=== PATIENT | female | born 1975 | race Caucasian/White ===

== ENCOUNTER 2017-09-16 13:16 | Day surgery (SDC) | payer BC, OTHER ==
[~2017-09-16] VITALS: Ht 162.6 cm; Wt 121.3 kg
[~2017-09-16 13:16] MED LIST: Acidophilus La100 GM; Advair Hfa 230-12 GM; Aviane1 EACH; DEXL60CA3; ESCI20; Flonase 0.05% N16 GM; HYDROCODON-ACE1 EAC3; MONT10T; NAPR550; TRAM50 PO
== END 2017-09-16 15:24 | disposition home or self-care (01) ==
LOC: ORSCSDS 13:16
PROVIDERS: Internal Medicine Gastroenterology
PROC: 0DB68ZX Excision of Stomach, Via Natural or Artificial Opening Endoscopic, Diagnostic (ICD-10-PCS; principal; 2017-09-16 15:00)
PROC: 0DB98ZX Excision of Duodenum, Via Natural or Artificial Opening Endoscopic, Diagnostic (ICD-10-PCS; principal; 2017-09-16 15:00)
DX: K21.9 Gastro-esophageal reflux disease without esophagitis (principal); R13.10 Dysphagia, unspecified; K31.7 Polyp of stomach and duodenum; R19.7 Diarrhea, unspecified; K44.9 Diaphragmatic hernia without obstruction or gangrene; K29.70 Gastritis, unspecified, without bleeding; E11.9 Type 2 diabetes mellitus without complications; M79.7 Fibromyalgia; E66.01 Morbid (severe) obesity due to excess calories; Z68.42 Body mass index [BMI] 45.0-49.9, adult; F41.9 Anxiety disorder, unspecified; Z79.899 Other long term (current) drug therapy
CPT/HCPCS: 88305; 88342; J2250; J7120

== ENCOUNTER 2017-10-27 08:21 | Day surgery (SDC) | payer BC, OTHER | END 2017-10-27 23:02 | disposition home or self-care (01) | LOC: MOI MAM 08:21 | PROC: 0HBU3ZX Excision of Left Breast, Percutaneous Approach, Diagnostic (ICD-10-PCS; principal; 2017-10-27) | DX: N62 Hypertrophy of breast (principal) | CPT/HCPCS: 19083; 77065; 88305 ==

== ENCOUNTER → 2018-10-19 | Outpatient (CLI) | payer OTHER ==
[2018-10-21 15:07] LABS: HPV 16 Negative (Negative); HPV 18 Negative (Negative); HPV OTHER HR TYPES Negative (Negative)
== END | disposition home or self-care (01) ==
LOC: LAB SHORT 12:37 → LAB 12:37
PROVIDERS: Nurse Practitioner Women's Health
DX: Z12.4 Encounter for screening for malignant neoplasm of cervix (principal); L29.2 Pruritus vulvae
CPT/HCPCS: 87070; 87205; 87624; G0123

== ENCOUNTER → 2019-09-04 | Outpatient (CLI) | payer OTHER | END | disposition home or self-care (01) | LOC: LAB SHORT 10:00 → LAB 10:00 | DX: N39.0 Urinary tract infection, site not specified (principal); R35.0 Frequency of micturition | CPT/HCPCS: 87077; 87086; 87186 ==

== ENCOUNTER 2021-10-18 10:42 | Day surgery (SDC) | payer OTHER ==
[2021-10-16 15:15] LABS: BASOPHILS ABSOLUTE AUTO 0.01 K/mm3 (0.00-0.23); BASOPHILS PERCENT AUTO 0 % (0-2); EOSINOPHILS ABSOLUTE AUTO 0.14 K/mm3 (0.00-0.68); EOSINOPHILS PERCENT AUTO 2 % (0-6); Hematocrit 40.7 % (33.0-51.0); Hemoglobin 13.1 g/dL (11.5-16.0); IMMATURE GRAN ABSOLUTE AUTO 0.02 K/mm3 (0.00-0.10); IMMATURE GRAN PERCENT AUTO 0 % (0-1); LYMPHOCYTES ABSOLUTE AUTO 1.11 K/mm3 (0.84-5.20); LYMPHOCYTES PERCENT AUTO 19 % (21-46); MONOCYTES ABSOLUTE AUTO 0.52 K/mm3 (0.16-1.47); MONOCYTES PERCENT AUTO 9 % (4-13); Mean Corpuscular HGB 29.4 pg (26.0-34.0); Mean Corpuscular HGB Conc 32.2 g/dL (31.5-36.5); Mean Corpuscular Volume 91 fL (80-100); Mean Platelet Volume 10.8 fL (9.1-12.4); NEUTROPHILS ABSOLUTE AUTO 4.17 K/mm3 (1.96-9.15); NEUTROPHILS PERCENT AUTO 70 % (41-73); Platelet Count 287 K/mm3 (150-400); RDW Coefficient Variation 13.1 % (11.7-14.2); RDW Standard Deviation 43.5 fL (35.1-46.3); Red Blood Cell Count 4.46 M/mm3 (3.80-5.20); White Blood Cell Count 5.97 K/mm3 (4.00-11.30)
[2021-10-16 23:46] LABS: Anion Gap 4 mmol/L (6-16); Beta HCG, Quantitative, Serum <1 mIU/mL (0-3); Blood Urea Nitrogen 13 mg/dL (8-24); Bun/Creatinine Ratio 17.8 (12.0-20.0); CO2, Blood 30 mmol/L (21-32); Calcium, Blood 8.5 mg/dL (8.5-10.1); Chloride, Blood 107 mmol/L (98-108); Creatinine, Blood 0.73 mg/dL (0.40-1.00); Glomerular Filtration Rate >60 (60-); Glucose, Blood 82 mg/dL (70-99); Potassium, Blood 4.1 mmol/L (3.5-5.5); Sodium, Blood 141 mmol/L (136-145)
[~2021-10-18] VITALS: Ht 162.6 cm; Wt 127.1 kg
[2021-10-18] MEDS ORDERED: AMLODIPINE-OLM1 EACH PO (11:01)
[2021-10-18] MEDS ORDERED: LORA10ER PO (11:01)
[2021-10-18] MEDS ORDERED: ESOMEPRAZOLE MA40 MG PO (11:01)
--- NOTE | 2021-10-18 18:21 | NUR ---
PT. ARRIVE TO FLOOR VIA GURNEY FROM PACU AT 1800. PATIENT NAUSEATED WITH MOVEMENT THEN DENIES NAUSEA. TOOK SIP WATER. IVF INFUSING, HER DRAINING CLEAR YELLOW URINE. PATIENT DOZING. ELVIRA CARE DONE, CLEAN ELVIRA PAD ADDED. O2 ON AT 3L PER NC. VSS. CALL LIGHT IN REACH.
--- NOTE | 2021-10-18 18:48 | NUR ---
pt. c/o "bad cramping "in abdomen. VSS and sats 97% on 3L per nc. Morphine 5 mg iv given and pt. verbalize relief. Taking sips water. Denies nausea at this time.
--- NOTE | 2021-10-19 02:13 | NUR ---
villa out; toleratd well.
[2021-10-19 04:39] LABS: BASOPHILS ABSOLUTE AUTO 0.02 K/mm3 (0.00-0.23); BASOPHILS PERCENT AUTO 0 % (0-2); EOSINOPHILS PERCENT AUTO 0 % (0-6); Hematocrit 37.4 % (33.0-51.0); Hemoglobin 12.5 g/dL (11.5-16.0); IMMATURE GRAN ABSOLUTE AUTO 0.05 K/mm3 (0.00-0.10); IMMATURE GRAN PERCENT AUTO 0 % (0-1); LYMPHOCYTES ABSOLUTE AUTO 0.35 K/mm3 (0.84-5.20); LYMPHOCYTES PERCENT AUTO 3 % (21-46); MONOCYTES ABSOLUTE AUTO 0.22 K/mm3 (0.16-1.47); MONOCYTES PERCENT AUTO 2 % (4-13); Mean Corpuscular HGB 29.2 pg (26.0-34.0); Mean Corpuscular HGB Conc 33.4 g/dL (31.5-36.5); Mean Corpuscular Volume 87 fL (80-100); Mean Platelet Volume 10.2 fL (9.1-12.4); NEUTROPHILS ABSOLUTE AUTO 13.06 K/mm3 (1.96-9.15); NEUTROPHILS PERCENT AUTO 95 % (41-73); Platelet Count 242 K/mm3 (150-400); RDW Coefficient Variation 12.6 % (11.7-14.2); RDW Standard Deviation 40.6 fL (35.1-46.3); Red Blood Cell Count 4.28 M/mm3 (3.80-5.20)
--- NOTE | 2021-10-19 04:44 | NUR ---
PT IS AOX4. 96-100 % SATS ON RA. REMOVED HER, VOIDED. HAS PAD ON; SCAN OF BLOOD. EATING CRACKERS AND DRINKING FLUIDS; TOLERATING WELL. UP TO THE RESTROOM WITH SBA WITHOUT HAVING DIZZINESS OR LIGHT HEADED. PUNTURE X4 WITH GLUE ARE CDI. TORADOL AND PERCOCET WERE GIVEN FOR PAIN.
[2021-10-19] MEDS ORDERED: IBUP400 PO (10:01)
[2021-10-19] MEDS ORDERED: DOCU100 PO (10:01)
[2021-10-19] MEDS ORDERED: ESTR2 PO (10:02)
[2021-10-19] MEDS ORDERED: Percocet 5-3251 EACH PO (10:09)
[2021-10-19] MEDS ORDERED: DULCOLAX400 MG/5 M PO (10:09)
[2021-10-19] MEDS ORDERED: PROM25 PO (10:10)
[2021-10-19] MEDS ORDERED: SENN187 PO (10:10)
[2021-10-19] MEDS ORDERED: SIME80CH PO (10:11)
--- NOTE | 2021-10-19 11:45 | NUR ---
DISCHARGE SUMMARY PATIENT ALERT AND ORIENTED THROUGHOUT SHIFT. TOLERATING REGULAR DIET AND LIQUIDS. SALINE LOCKED. VOIDING WELL. PAIN CONTROLLED WITH PO PAIN PILLS. LAP SITES X4 C/D/I UNDER ABD BINDER. SCANT BLOOD SPOTTING TO ELVIRA PAD. WALKS INDEPENDENTLY IN ROOM. DISCHARGE ORDERS OBTAINED. DISCHARGE EDUCATION GIVEN ON ACTIVITY, WOUND CARE, NEW MEDS, AND FOLLOW UP APPTS. PATIENT LEFT UNIT AT 1135 VIA WHEELCHAIR FOR HOME.
== END 2021-10-19 11:40 | disposition home or self-care (01) ==
LOC: ORSCMMR 10:42 → ORD 12:30 → ORSCMMR 12:30 → SURS 17:49 → ORSCMMR 10-19 11:40 → ORD 11-15 07:30
PROVIDERS: Obstetrics & Gynecology
PROC: 0UT74ZZ Resection of Bilateral Fallopian Tubes, Percutaneous Endoscopic Approach (ICD-10-PCS; principal; 2021-10-18 12:30)
PROC: 8E0W4CZ Robotic Assisted Procedure of Trunk Region, Percutaneous Endoscopic Approach (ICD-10-PCS; principal; 2021-10-18 12:30)
PROC: 0UT94ZZ Resection of Uterus, Percutaneous Endoscopic Approach (ICD-10-PCS; principal; 2021-10-18 12:30)
PROC: 0UT24ZZ Resection of Bilateral Ovaries, Percutaneous Endoscopic Approach (ICD-10-PCS; principal; 2021-10-18 12:30)
DX: N92.1 Excessive and frequent menstruation with irregular cycle (principal); N94.6 Dysmenorrhea, unspecified; D25.9 Leiomyoma of uterus, unspecified; R10.2 Pelvic and perineal pain; E28.2 Polycystic ovarian syndrome; N72 Inflammatory disease of cervix uteri; I10 Essential (primary) hypertension; J45.909 Unspecified asthma, uncomplicated; Z87.891 Personal history of nicotine dependence; F41.8 Other specified anxiety disorders; E66.01 Morbid (severe) obesity due to excess calories; Z68.42 Body mass index [BMI] 45.0-49.9, adult; Z79.899 Other long term (current) drug therapy
CPT/HCPCS: 58571; S2900; 36415; 80048; 84702; 85025; 86850; 86900; 86901; 88307; A9270; J0330; J0690; J1100; J1885; J2250; J2270; J2370; J2405; J2704; J3010; J7120

== ENCOUNTER → 2021-11-17 | Outpatient (CLI) | payer OTHER ==
[~2021-11-17] MED LIST changes: +AMLODIPINE-OLM1 EACH PO; +DOCU100 PO; +DULCOLAX400 MG/5 M PO; +ESOMEPRAZOLE MA40 MG PO; +ESTR2 PO; +IBUP400 PO; +LORA10ER PO; +PROM25 PO; +Percocet 5-3251 EACH PO; +SENN187 PO; +SIME80CH PO
== END | disposition home or self-care (01) ==
LOC: LAB SHORT 11:00 → LAB 11:00
DX: T81.49XA Infection following a procedure, other surgical site, initial encounter (principal)
CPT/HCPCS: 87070; 87075; 87077; 87147; 87186; 87205

== ENCOUNTER 2023-02-20 11:58 | Day surgery (SDC) | payer OTHER ==
[~2023-02-20] VITALS: Ht 162.6 cm; Wt 128.6 kg
[2023-02-20] MEDS ORDERED: DOTTI1 EA19 (12:30)
[2023-02-20] MEDS ORDERED: ESOM20 (12:31)
[2023-02-20] MEDS ORDERED: MONT10T (12:31)
[2023-02-20] MEDS ORDERED: NAPR550 (12:31)
[2023-02-20] MEDS ORDERED: LORA10ER (12:38)
[2023-02-20 15:40] VITALS: BP 120/77
== END 2023-02-20 15:42 | disposition home or self-care (01) ==
LOC: ORSCSDS 11:58
DX: Z12.11 Encounter for screening for malignant neoplasm of colon (principal); Z83.71 Family history of colonic polyps; K63.5 Polyp of colon; K62.1 Rectal polyp; D12.8 Benign neoplasm of rectum; K64.8 Other hemorrhoids; K21.9 Gastro-esophageal reflux disease without esophagitis; J45.909 Unspecified asthma, uncomplicated; F41.9 Anxiety disorder, unspecified; I10 Essential (primary) hypertension; E66.01 Morbid (severe) obesity due to excess calories; Z68.42 Body mass index [BMI] 45.0-49.9, adult; Z79.899 Other long term (current) drug therapy
CPT/HCPCS: 88305; J2704; J7120

== ENCOUNTER → 2024-08-18 | Outpatient (CLI) | payer OTHER ==
[~2024-08-18] MED LIST changes: +DICLOFENAC SOD100 GM; +DOTTI1 EA19; +ERGO400; +ESOM20; +LORA10ER; +TURMERIC CURCU1 EACH; +Vitamin B Comple1 EA
== END | disposition home or self-care (01) ==
LOC: LAB 08:36 → LAB SHORT 08:36
DX: B37.2 Candidiasis of skin and nail (principal)
CPT/HCPCS: 87070; 87205